=== PATIENT | female | born 1935 | race Caucasian/White ===

== ENCOUNTER 2020-10-11 00:18 | Emergency (ER) | payer OTHER ==
[2020-10-11 00:27] VITALS: BP 150/88; PULSE 75; RESP 18; TEMP 98
--- NOTE | 2020-10-11 01:03 | ED ---
Recheck HPI - General Chief Complaint: Recheck/Abnormal Lab/Rx Stated Complaint: Covid Swab Time Seen by Provider: 10/11/20 00:22 Source: patient Mode of arrival: ambulatory - History of Present Illness Initial Comments: 85-year-old female patient is requesting testing for COVID-19 in order to cross the border back into [place]. She denies having any symptoms at this time. States she does not need other testing. - Related Data Allergies Allergy/AdvReac Type Severity Reaction Status Date / Time No Known Allergies Allergy Verified 10/11/20 00:27 Review of Systems ROS Statement: Those systems with pertinent positive or pertinent negative responses have been documented in the HPI. ROS Other: All systems not noted in ROS Statement are negative. Past Medical History Past Medical History: No Reported History History of Any Multi-Drug Resistant Organisms: None Reported Past Surgical History: No Surgical Hx Reported Past Psychological History: No Psychological Hx Reported Smoking Status: Never smoker Past Alcohol Use History: None Reported Past Drug Use History: None Reported General Exam General appearance: alert, in no apparent distress Neurological exam: Present: alert, oriented X3, CN II-XII intact Psychiatric exam: Present: normal affect, normal mood Skin exam: Present: warm, dry, intact, normal color. Absent: rash Course Vital Signs 10/11/20 00:24 Temperature 98 F Pulse Rate 75 Respiratory 18 Rate Blood Pressure 150/88 O2 Sat by Pulse 97 Oximetry Medical Decision Making - Medical Decision Making 85 year-old female presented for COVID testing only. Denies having any symptoms. She was tested and result was negative. She is provided with copy of labs to cross into [place]. Instructed to follow up with her physician as needed. My attending is Dr. Mclean. - Lab Data Lab Results 10/11/20 Range/Units 00:31 Coronavirus (PCR) Not Detected (Not Detectd) Disposition Clinical Impression: Encounter for laboratory testing for COVID-19 virus Disposition: HOME SELF-CARE Condition: Good Instructions (If sedation given, give patient instructions): Coronavirus Disease 2019 (COVID-19) Additional Instructions: Follow up with primary care physician as needed. Is patient prescribed a controlled substance at d/c from ED?: No Referrals: None,Stated [Primary Care Provider] - 1-2 days Time of Disposition: 01:02
== END 2020-10-11 01:43 | disposition home or self-care (01) ==
LOC: EC 00:18
DX: Z20.822 Contact with and (suspected) exposure to COVID-19 (principal)
CPT/HCPCS: 87635; 99283